=== PATIENT | male | born 1985 | race African-American/Black ===

== ENCOUNTER 2018-01-08 07:35 | Emergency (ER) | payer MEDICAID ==
[~2018-01-08] VITALS: Ht 190.5 cm; Wt 108.9 kg
[2018-01-08] MEDS ORDERED: SODIUM CHLORIDE 0.9% 1,000 ML IV ONE (08:09)
[2018-01-08] MEDS ORDERED: LEVETIRACETAM INJ 500 MG in D5W 5% 100 ML IV ONE (08:15)
[2018-01-08] MEDS ORDERED: HYDROcodone-ACET 5/325MG TAB PO ONE (08:30)
[2018-01-08 09:46] LABS: Basophils # (auto) 0 uL; Basophils % (auto) 0.1 % (0.0-2.0); Eosinophils # (auto) 0 uL; Eosinophils % (auto) 0.1 % (0.0-7.0); Hematocrit 46.5 % (41.0-53.0); Hemoglobin 15.7 g/dL (13.5-17.5); Lymphocytes # (auto) 1.1 uL; Lymphocytes % (auto) 8.5 % (10.0-50.0); Mean Corpuscular Hemoglobin 32.2 pg (28.0-32.0); Mean Corpuscular Hgb Conc. 33.7 g/dL (32.0-36.0); Mean Corpuscular Volume 95.6 fL (80.0-100.0); Monocytes % (auto) 7.8 % (0.0-12.0); Neutrophils % (auto) 83.5 % (37.0-80.0); Nucleated Red Blood Cells % 0.1 %; Platelet Count (auto) 252 10^3/uL (140-450); Red Blood Cells 4.86 10^6/uL (4.5-5.90); Red Cell Distribution Width 13.4 % (11.8-14.3); White Blood Cell 13.1 10^3/uL (4.4-10.8)
[2018-01-08 10:18] LABS: Alanine Aminotransferase 80 U/L (16-61); Albumin 4.4 g/dL (3.4-5.0); Anion Gap 8 (5-15); Aspartate Aminotransferase 33 U/L (15-37); BUN/Creatinine Ratio 10.6; Blood Urea Nitrogen 13 mg/dL (7-18); Calcium 8.3 mg/dL (8.5-10.1); Carbon Dioxide 22 mmol/L (21-32); Chloride 107 mmol/L (98-107); GFR African American 88 mL/min; GFR Non-African American 73 mL/min; Glucose 83 mg/dL (74-106); Potassium 4.1 mmol/L (3.5-5.1); Sodium 137 mmol/L (136-145)
[2018-01-08 10:21] LABS: Alkaline Phosphatase 77 U/L (45-117); Bilirubin, Total 0.4 mg/dL (0.2-1.0); Total Protein 9.2 g/dL (6.4-8.2)
[2018-01-08 11:01] VITALS: BP 143/92
== END 2018-01-08 11:09 | disposition home or self-care (01) ==
LOC: ER 07:35
DX: G40.909 Epilepsy, unspecified, not intractable, without status epilepticus (principal)
CPT/HCPCS: 36415; 71045; 80053; 84484; 85025; 96365; 96366; 99285; J1953; J7030; J7060

== ENCOUNTER 2019-02-06 11:14 | Emergency (ER) | payer MEDICAID ==
[~2019-02-06] VITALS: Ht 175.3 cm; Wt 104.3 kg
[2019-02-06] MEDS ORDERED: LORazepam 2MG/ML-1ML VIAL ONE (11:35)
[2019-02-06] MEDS ORDERED: LORazepam 2MG/ML-1ML VIAL IV ONE ×2 (11:45→12:15)
[2019-02-06] MEDS ORDERED: LEVETIRACETAM INJ 1,000 MG in D5W 5% 100 ML IV ONE (12:15)
[2019-02-06 12:39] LABS: Basophils # (auto) 0.1 uL; Eosinophils # (auto) 0.2 uL; Nucleated Red Blood Cells % 0.1 %; Red Cell Distribution Width 13.9 % (11.8-14.3)
[2019-02-06 12:39] LABS: Urine Bacteria NONE SEEN /hpf (None Seen); Urine Blood TRACE /uL (Negative); Urine Mucus FEW (None Seen); Urine Specific Gravity 1.024 (1.001-1.035); Urine WBC <1 /hpf (0 - 3)
[2019-02-06 12:40] LABS: Basophils % (auto) 0.5 % (0.0-2.0); Eosinophils % (auto) 0.9 % (0.0-7.0); Hematocrit 53.6 % (41.0-53.0); Hemoglobin 16.3 g/dL (13.5-17.5); Lymphocytes # (auto) 6.4 uL; Mean Corpuscular Hemoglobin 31.4 pg (28.0-32.0); Mean Corpuscular Hgb Conc. 30.4 g/dL (32.0-36.0); Mean Corpuscular Volume 103.2 fL (80.0-100.0); Monocytes # (auto) 1.3 uL; Monocytes % (auto) 7.1 % (0.0-12.0); Neutrophils # (auto) 10.9 uL; Neutrophils % (auto) 57.5 % (37.0-80.0); Platelet Count (auto) 349 10^3/uL (140-450); Red Blood Cells 5.19 10^6/uL (4.5-5.90); White Blood Cell 18.9 10^3/uL (4.4-10.8)
[2019-02-06] MEDS ORDERED: MIDAZOLAM DRIP 50 mg/50mL 50 ML IV ONE (12:51)
[2019-02-06 13:00] LABS: Albumin 5.3 g/dL (3.4-5.0); Anion Gap 27 (5-15); BUN/Creatinine Ratio 9.7; Blood Alcohol < 3.0 mg/dL (0-5); Blood Urea Nitrogen 16 mg/dL (7-18); Calcium 9.8 mg/dL (8.5-10.1); Chloride 106 mmol/L (98-107); GFR African American 62 mL/min; GFR Non-African American 52 mL/min; Glucose 201 mg/dL (74-106); Potassium 3.9 mmol/L (3.5-5.1); Sodium 139 mmol/L (136-145)
[2019-02-06 13:02] LABS: Alcohol, Urine < 3.0 mg/dL (0-5); Amphetamine Screen, Urine NEGATIVE (NEGATIVE); Barbiturate Scree,Urine NEGATIVE (NEGATIVE); Benzodiazephine Screen, Urine NEGATIVE (NEGATIVE); Cannabinoid Screen, Urine POSITIVE (NEGATIVE); Opiate Scree,Urine NEGATIVE (NEGATIVE); Phencyclidine Screen, Urine NEGATIVE (NEGATIVE)
[2019-02-06 13:11] LABS: Cocaine Screen, Urine NEGATIVE (NEGATIVE)
[2019-02-06 13:13] LABS: Alanine Aminotransferase 62 U/L (16-61); Alkaline Phosphatase 97 U/L (45-117); Aspartate Aminotransferase 27 U/L (15-37); Bilirubin, Total 0.4 mg/dL (0.2-1.0); Total Protein 10.6 g/dL (6.4-8.2)
[2019-02-06] MEDS ORDERED: SODIUM CHLORIDE 0.9% 1,000 ML IV ONE (13:15)
[2019-02-06] MEDS ORDERED: SODIUM BICARBONATE 8.4 % INJ 50ML VIAL IV ONE (13:15)
[2019-02-06 13:19] LABS: Carbon Dioxide 6 mmol/L (21-32)
[2019-02-06 16:00] VITALS: BP 142/97
== END 2019-02-06 16:27 | disposition home or self-care (01) ==
LOC: EDUNIT# 11:14 → EDBD 11:14 → ER 11:16
DX: G40.909 Epilepsy, unspecified, not intractable, without status epilepticus (principal); F19.10 Other psychoactive substance abuse, uncomplicated
CPT/HCPCS: 36415; 36600; 70450; 71045; 80053; 80307; 80320; 81001; 82805; 85025; 96365; 96375; 99284; J1953; J2060; J2250; J7060

== ENCOUNTER 2019-10-13 05:55 | Emergency (ER) | payer MEDICAID ==
[~2019-10-13] VITALS: Ht 175.3 cm; Wt 95.3 kg
[2019-10-13] MEDS ORDERED: SODIUM CHLORIDE 0.9% 1,000 ML IV ONE (06:41)
[2019-10-13] MEDS ORDERED: ACETAMINOPHEN 500 MG TAB PO ONE (06:45)
[2019-10-13] MEDS ORDERED: LORazepam 2MG/ML-1ML VIAL IV ONE (06:45)
[2019-10-13 07:54] LABS: Basophils # (auto) 0 10 ^3/uL (0-0.2); Basophils % (auto) 0.4 % (0.0-2.0); Eosinophils # (auto) 0 10 ^3/uL (0-0.8); Hematocrit 44.9 % (41.0-53.0); Hemoglobin 14.9 g/dL (13.5-17.5); Lymphocytes # (auto) 0.6 10 ^3/uL (0.4-5.4); Lymphocytes % (auto) 5.7 % (10.0-50.0); Mean Corpuscular Hemoglobin 32.4 pg (28.0-32.0); Mean Corpuscular Hgb Conc. 33.3 g/dL (32.0-36.0); Mean Corpuscular Volume 97.5 fL (80.0-100.0); Monocytes # (auto) 0.7 10 ^3/uL (0-1.3); Monocytes % (auto) 7.4 % (0.0-12.0); Neutrophils # (auto) 8.5 10 ^3/uL (1.6-8.6); Neutrophils % (auto) 86.5 % (37.0-80.0); Nucleated Red Blood Cells % 0.1 %; Platelet Count (auto) 246 10^3/uL (140-450); Red Cell Distribution Width 13.1 % (11.8-14.3); White Blood Cell 9.9 10^3/uL (4.4-10.8)
[2019-10-13 08:13] LABS: Albumin 4.2 g/dL (3.4-5.0); Calcium 9.3 mg/dL (8.5-10.1); Magnesium 3.1 mg/dL (1.6-2.6); Potassium 4.1 mmol/L (3.5-5.1)
[2019-10-13 08:17] LABS: Bilirubin, Total 0.4 mg/dL (0.2-1.0); Total Protein 8.9 g/dL (6.4-8.2)
[2019-10-13 09:25] LABS: Urine WBC None Seen /hpf (0 - 3)
[2019-10-13 09:40] LABS: Urine Bacteria NONE SEEN /hpf (None Seen); Urine Blood Negative /uL (Negative); Urine Specific Gravity 1.017 (1.001-1.035); Urine WBC Clumps PRESENT /hpf (None Seen)
[2019-10-13 09:54] LABS: Amphetamine Screen, Urine NEGATIVE (NEGATIVE); Barbiturate Scree,Urine NEGATIVE (NEGATIVE); Benzodiazephine Screen, Urine NEGATIVE (NEGATIVE); Cannabinoid Screen, Urine POSITIVE (NEGATIVE); Cocaine Screen, Urine NEGATIVE (NEGATIVE)
[2019-10-13 10:01] LABS: Opiate Scree,Urine NEGATIVE (NEGATIVE); Phencyclidine Screen, Urine NEGATIVE (NEGATIVE)
[2019-10-13 10:06] VITALS: BP 160/91
== END 2019-10-13 10:24 | disposition home or self-care (01) ==
LOC: EDBD 05:55 → ER 05:55
DX: G40.909 Epilepsy, unspecified, not intractable, without status epilepticus (principal); F12.10 Cannabis abuse, uncomplicated
CPT/HCPCS: 36415; 71045; 80053; 80307; 81001; 83735; 85025; 93005; 96374; 99285; J2060; J7030

== ENCOUNTER 2020-02-22 04:11 | Emergency (ER) | payer MEDICAID ==
[~2020-02-22] VITALS: Ht 177.8 cm; Wt 95.3 kg
[2020-02-22] MEDS ORDERED: SODIUM CHLORIDE 0.9% 1,000 ML IV ONE (04:30)
[2020-02-22 05:30] VITALS: BP 130/90
[2020-02-22] MEDS ORDERED: LORazepam 2MG/ML-1ML VIAL ONE (05:43)
[2020-02-22 06:55] LABS: Urine Bacteria FEW /hpf (None Seen); Urine Blood 2+ /uL (Negative); Urine Mucus FEW (None Seen); Urine Specific Gravity 1.014 (1.001-1.035); Urine WBC 3 /hpf (0 - 3)
[2020-02-22 06:56] LABS: Alcohol, Urine < 3.0 mg/dL (0-10); Amphetamine Screen, Urine NEGATIVE (NEGATIVE); Barbiturate Scree,Urine NEGATIVE (NEGATIVE); Benzodiazephine Screen, Urine NEGATIVE (NEGATIVE); Cannabinoid Screen, Urine POSITIVE (NEGATIVE); Cocaine Screen, Urine NEGATIVE (NEGATIVE); Opiate Scree,Urine NEGATIVE (NEGATIVE); Phencyclidine Screen, Urine NEGATIVE (NEGATIVE)
[2020-02-22] MEDS ORDERED: LORazepam 2MG/ML-1ML VIAL IV ONE (07:00)
[2020-02-22 07:10] LABS: Basophils # (auto) 0.1 10 ^3/uL (0-0.2); Basophils % (auto) 0.5 % (0.0-2.0); Eosinophils # (auto) 0.2 10 ^3/uL (0-0.8); Eosinophils % (auto) 1.1 % (0.0-7.0); Lymphocytes # (auto) 3.2 10 ^3/uL (0.4-5.4); Lymphocytes % (auto) 18.8 % (10.0-50.0); Mean Corpuscular Hemoglobin 31.7 pg (28.0-32.0); Mean Corpuscular Hgb Conc. 32.7 g/dL (32.0-36.0); Monocytes # (auto) 1.5 10 ^3/uL (0-1.3); Neutrophils # (auto) 12.1 10 ^3/uL (1.6-8.6); Neutrophils % (auto) 70.6 % (37.0-80.0); Nucleated Red Blood Cells % 0.1 %; Platelet Count (auto) 306 10^3/uL (140-450); Red Blood Cells 4.74 10^6/uL (4.5-5.90); White Blood Cell 17.2 10^3/uL (4.4-10.8)
[2020-02-22 07:22] LABS: Alanine Aminotransferase 56 U/L (16-61); Albumin 4.3 g/dL (3.4-5.0); Anion Gap 18 (5-15); Aspartate Aminotransferase 23 U/L (15-37); BUN/Creatinine Ratio 9.1; Blood Urea Nitrogen 12 mg/dL (7-18); Calcium 8.8 mg/dL (8.5-10.1); Carbon Dioxide 13 mmol/L (21-32); Chloride 106 mmol/L (98-107); GFR African American 80 mL/min; GFR Non-African American 66 mL/min; Glucose 156 mg/dL (74-106); Potassium 3.5 mmol/L (3.5-5.1); Sodium 137 mmol/L (136-145)
[2020-02-22 07:24] LABS: Alkaline Phosphatase 84 U/L (45-117); Bilirubin, Total 0.2 mg/dL (0.2-1.0); Total Protein 8.9 g/dL (6.4-8.2)
[2020-02-22 07:28] LABS: Blood Alcohol < 3.0 mg/dL (0-5)
== END 2020-02-22 08:32 | disposition still patient (30) ==
LOC: EDBD 04:11 → ER 04:11
DX: G40.89 Other seizures (principal)
CPT/HCPCS: 36415; 70450; 80053; 80307; 80320; 81001; 85025; 96361; 96374; 99284; J1953; J2060; J7030; J7060

== ENCOUNTER 2020-02-22 13:46 | Emergency (ER) | payer MEDICAID ==
[~2020-02-22] VITALS: Ht 177.8 cm; Wt 86.2 kg
[2020-02-22] MEDS ORDERED: LORazepam 2MG/ML-1ML VIAL IV ONE (14:00)
[2020-02-22 18:55] VITALS: BP 135/91
== END 2020-02-22 16:42 | disposition home or self-care (01) ==
LOC: ER 13:46 → EDBD 13:46 → ER 16:42
DX: G40.89 Other seizures (principal); F12.10 Cannabis abuse, uncomplicated
CPT/HCPCS: 96374; 99283; J2060

== ENCOUNTER 2023-11-13 19:02 | Inpatient (IN) | payer MEDICAID ==
[~2023-11-13] VITALS: Ht 175.3 cm; Wt 94.7 kg
[2023-11-13] MEDS: ONDANSETRON HCL 4 MG/2 ML VIAL IV ONE (20:22)
[2023-11-13] MEDS: MORPHINE SULFATE 4 MG/ML SYR/VIAL IV ONE (20:22)
[2023-11-13] MEDS ORDERED: levETIRAcetam 1000 mg/100ml 100 ML IV ONE (20:30)
[2023-11-13] MEDS: SODIUM CHLORIDE 0.9% 1,000 ML IV ONE (20:40)
[2023-11-13] MEDS: PHENYTOIN IV DILANTIN 1,000 MG in SODIUM CHL 0.9% 250 ML IV ONE (21:06)
[2023-11-13 21:46] LABS: Basophils # (auto) 0 10 ^3/uL (0-0.2); Basophils % (auto) 0.5 % (0.0-2.0); Eosinophils # (auto) 0 10 ^3/uL (0-0.8); Eosinophils % (auto) 0.4 % (0.0-7.0); Hematocrit 41.1 % (41.0-53.0); Hemoglobin 13.9 g/dL (13.5-17.5); Lymphocytes # (auto) 1.3 10 ^3/uL (0.4-5.4); Lymphocytes % (auto) 15.7 % (10.0-50.0); Mean Corpuscular Hemoglobin 32.9 pg (28.0-32.0); Mean Corpuscular Hgb Conc. 33.7 g/dL (32.0-36.0); Mean Corpuscular Volume 97.6 fL (80.0-100.0); Monocytes # (auto) 0.8 10 ^3/uL (0-1.3); Monocytes % (auto) 9.1 % (0.0-12.0); Neutrophils # (auto) 6.3 10 ^3/uL (1.6-8.6); Neutrophils % (auto) 74.3 % (37.0-80.0); Nucleated Red Blood Cells % 0.3 %; Platelet Count (auto) 215 10^3/uL (140-450); Red Blood Cells 4.22 10^6/uL (4.5-5.90); Red Cell Distribution Width 13.7 % (11.8-14.3); White Blood Cell 8.5 10^3/uL (4.4-10.8)
[2023-11-13 21:53] LABS: Alanine Aminotransferase 34 U/L (7-40); Albumin 4.7 g/dL (3.2-4.8); Alkaline Phosphatase 57 U/L (46-116); Anion Gap 5 (5-15); Aspartate Aminotransferase 17 U/L (13-40); BUN/Creatinine Ratio 12.7 (10.0-20.0); Bilirubin, Total 0.6 mg/dL (0.2-1.0); Blood Urea Nitrogen 13 mg/dL (9-23); Calcium 9.9 mg/dL (8.7-10.4); Carbon Dioxide 28 mmol/L (20-30); Chloride 104 mmol/L (98-107); Glucose 111 mg/dL (74-106); Potassium 4.8 mmol/L (3.5-5.1); Sodium 137 mmol/L (136-145); Total Protein 7.5 g/dL (5.7-8.2)
[2023-11-13 22:46] LABS: Urine Bacteria None Seen /hpf (None Seen)
[2023-11-13 23:01] LABS: Urine Blood Negative /uL (Negative); Urine Clarity Clear (Clear); Urine Color Colorless (Yellow); Urine Protein, UAD Negative (Negative); Urine Specific Gravity 1.004 (1.001-1.035); Urine Urobilinogen Normal (Negative); Urine WBC <1 /hpf (0 - 3)
[2023-11-13 23:33] VITALS: PULSE 82; RESP 10; O2SAT 96
[2023-11-14] VITALS (7 sets, daily range): BP systolic 133–144; BP diastolic 86–95; PULSE 68–86; RESP 16–18; TEMP 97.8–98.5; O2SAT 94–98
[2023-11-14] MEDS ORDERED: ONDANSETRON HCL 4 MG/2 ML VIAL IV PRN (01:30)
[2023-11-14] MEDS ORDERED: MORPHINE SULFATE INJ 2 MG/ml SYRG IV PRN (01:30)
[2023-11-14] MEDS ORDERED: LORazepam 2MG/ML-1ML VIAL IV PRN (01:30)
[2023-11-14] MEDS ORDERED: DOCUSATE SOD 100 MG CAP PO PRN (01:30)
[2023-11-14] MEDS ORDERED: NITROGLYCERIN 0.4 MG SL TAB SL PRN (01:30)
[2023-11-14] MEDS ORDERED: ACETAMINOPHEN 325 MG TAB PO PRN (01:30)
[2023-11-14] MEDS: SODIUM CHLORIDE 0.9% 1,000 ML IV SCH (01:35)
[2023-11-14 06:06] LABS: Basophils # (auto) 0.1 10 ^3/uL (0-0.2); Basophils % (auto) 0.6 % (0.0-2.0); Eosinophils # (auto) 0.1 10 ^3/uL (0-0.8); Eosinophils % (auto) 0.6 % (0.0-7.0); Hematocrit 40.2 % (41.0-53.0); Hemoglobin 13.6 g/dL (13.5-17.5); Lymphocytes # (auto) 2.2 10 ^3/uL (0.4-5.4); Lymphocytes % (auto) 25.5 % (10.0-50.0); Mean Corpuscular Hemoglobin 32.8 pg (28.0-32.0); Mean Corpuscular Hgb Conc. 33.8 g/dL (32.0-36.0); Mean Corpuscular Volume 97.2 fL (80.0-100.0); Monocytes # (auto) 0.8 10 ^3/uL (0-1.3); Neutrophils # (auto) 5.5 10 ^3/uL (1.6-8.6); Neutrophils % (auto) 64.3 % (37.0-80.0); Nucleated Red Blood Cells % 0.1 %; Platelet Count (auto) 206 10^3/uL (140-450); Red Blood Cells 4.14 10^6/uL (4.5-5.90); Red Cell Distribution Width 14.2 % (11.8-14.3); White Blood Cell 8.6 10^3/uL (4.4-10.8)
[2023-11-14 06:17] LABS: Alanine Aminotransferase 29 U/L (7-40); Albumin 4.5 g/dL (3.2-4.8); Alkaline Phosphatase 50 U/L (46-116); Anion Gap 4 (5-15); Aspartate Aminotransferase 13 U/L (13-40); BUN/Creatinine Ratio 5.7 (10.0-20.0); Blood Urea Nitrogen 6 mg/dL (9-23); Calcium 9.2 mg/dL (8.7-10.4); Carbon Dioxide 27 mmol/L (20-30); Chloride 107 mmol/L (98-107); Glucose 104 mg/dL (74-106); Potassium 3.9 mmol/L (3.5-5.1); Sodium 138 mmol/L (136-145)
[2023-11-14 06:18] LABS: Bilirubin, Total 0.6 mg/dL (0.2-1.0); Total Protein 7.4 g/dL (5.7-8.2)
[2023-11-14] MEDS: HYDROcodone-ACET 5/325MG TAB PO PRN (06:32)
[2023-11-14] MEDS ORDERED: LACO100T PO (07:21)
[2023-11-14] MEDS ORDERED: DIVA250T12 PO (07:22)
[2023-11-14] MEDS ORDERED: LORA-1123 PO (07:24)
[2023-11-14] MEDS: PHENYTOIN SODIUM 50 MG/ML 2ML VIAL IV SCH (10:08)
[2023-11-14] MEDS: LACOSAMIDE 50 MG TAB PO SCH (12:17)
[2023-11-14] MEDS ORDERED: LACOSAMIDE 50 MG TAB PO SCH (14:00)
[2023-11-14] MEDS: LORazepam 0.5 MG TAB PO ONE (16:03)
[2023-11-14] MEDS: LORazepam 0.5 MG TAB PO SCH (21:47)
[2023-11-15 05:00] VITALS: BP 131/90; PULSE 80; RESP 18; TEMP 98.1; O2SAT 98
[2023-11-15 07:36] LABS: Basophils # (auto) 0 10 ^3/uL (0-0.2); Basophils % (auto) 0.5 % (0.0-2.0); Eosinophils # (auto) 0.1 10 ^3/uL (0-0.8); Eosinophils % (auto) 1.5 % (0.0-7.0); Hematocrit 43.7 % (41.0-53.0); Hemoglobin 14.8 g/dL (13.5-17.5); Lymphocytes # (auto) 1.7 10 ^3/uL (0.4-5.4); Lymphocytes % (auto) 26.3 % (10.0-50.0); Mean Corpuscular Hemoglobin 33.2 pg (28.0-32.0); Mean Corpuscular Hgb Conc. 33.8 g/dL (32.0-36.0); Mean Corpuscular Volume 98.1 fL (80.0-100.0); Monocytes # (auto) 0.8 10 ^3/uL (0-1.3); Monocytes % (auto) 11.6 % (0.0-12.0); Neutrophils # (auto) 3.9 10 ^3/uL (1.6-8.6); Neutrophils % (auto) 60.1 % (37.0-80.0); Platelet Count (auto) 207 10^3/uL (140-450); Red Blood Cells 4.46 10^6/uL (4.5-5.90); White Blood Cell 6.5 10^3/uL (4.4-10.8)
[2023-11-15 08:00] VITALS: BP 137/103; PULSE 68; PULSE 94; RESP 16; RESP 18; TEMP 97.8; O2SAT 100; O2SAT 99
[2023-11-15 08:06] LABS: Alanine Aminotransferase 23 U/L (7-40); Albumin 4.6 g/dL (3.2-4.8); Alkaline Phosphatase 55 U/L (46-116); Anion Gap 2 (5-15); Aspartate Aminotransferase 19 U/L (13-40); Bilirubin, Total 0.5 mg/dL (0.2-1.0); Blood Urea Nitrogen 7 mg/dL (9-23); Calcium 9.9 mg/dL (8.7-10.4); Carbon Dioxide 31 mmol/L (20-30); Chloride 104 mmol/L (98-107); Glucose 95 mg/dL (74-106); Potassium 4.1 mmol/L (3.5-5.1); Sodium 137 mmol/L (136-145); Total Protein 7.8 g/dL (5.7-8.2)
[2023-11-15] MEDS ORDERED: DIVA-139 PO (10:39)
[2023-11-15 11:33] VITALS: BP 119/59; PULSE 94; RESP 18; TEMP 36.6; O2SAT 100
[2023-11-15 12:00] VITALS: BP 127/94; PULSE 67; RESP 18; TEMP 98.4; O2SAT 100
== END 2023-11-15 13:50 | disposition home or self-care (01) | DRG 53 ==
LOC: ER 19:02 → TELE 11-14 01:29 → TELE-EAST 11-14 06:06
PROVIDERS: ADMIT Nurse Practitioner Family; ATTEND Family Medicine
DX: G40.409 Other generalized epilepsy and epileptic syndromes, not intractable, without status epilepticus (principal); E11.9 Type 2 diabetes mellitus without complications; F41.9 Anxiety disorder, unspecified; R41.3 Other amnesia; G40.209 Localization-related (focal) (partial) symptomatic epilepsy and epileptic syndromes with complex partial seizures, not intractable, without status epilepticus; I10 Essential (primary) hypertension; Z82.49 Family history of ischemic heart disease and other diseases of the circulatory system; Z83.3 Family history of diabetes mellitus; Z91.148 Patient's other noncompliance with medication regimen for other reason
CPT/HCPCS: 36415; 70450; 80053; 80164; 81001; 84484; 85025; G0378; J2405

== ENCOUNTER 2025-01-22 02:06 | Inpatient (IN) | payer MEDICAID ==
[~2025-01-22] VITALS: Ht 175.3 cm; Wt 96.0 kg
[~2025-01-22 02:06] MED LIST: DIVA-139 PO; DIVA250T12 PO; LACO100T PO; LORA-1123 PO
[2025-01-22] MEDS: ACETAMINOPHEN 500 MG TAB or CAP PO ONE (03:12)
[2025-01-22] MEDS: LORazepam 2MG/ML-1ML VIAL IV ONE (03:12)
[2025-01-22] MEDS: SODIUM CHLORIDE 0.9% 1,000 ML IV ONE (03:12)
--- NOTE | 2025-01-22 03:12 | ED.PDOC ---
HPI (NEURO) HPI Comments 31-year-old male who came to ER via EMS for seizures. Patient has a history of seizures, takes Depakote and Vimpat as medications. These last seizure episode was 3 weeks ago. Had another seizure episode at home, witnessed by family members. Patient currently complaining of weakness, headaches and body pains REVIEW OF SYSTEMS: General: No fever, no chills, or fatigue HEENT: No sore throat, no earache, no congestion, no neck pain. Cardiac: No chest pain. No palpitations. Lungs: No shortness of breath, no cough. GI: No nausea, no vomiting, no diarrhea, no constipation, no abdominal pain : No dysuria, frequency, or urgency. No hematuria. Musculoskeletal: No joint pain , no joint swelling, no extremity edema. Skin: No rash, no itching. Neuro: (+) headache, no dizziness, (+) weakness, (+) seizures PHYSICAL EXAM: General: Awake, alert and oriented. No acute distress. Skin: Skin in warm, dry and intact without rashes or lesions. HEENT: The head is normocephalic and atraumatic. Conjunctivae are clear without exudates or hemorrhage. Sclera is non-icteric. Neck: Normal range of motion. No JVD. Cardiac: Regular rate Respiratory: No signs of respiratory distress. No Stridor. Extremities: Upper and lower extremities are atraumatic in appearance without deformity. Neurological: The patient is awake, alert and oriented to person, place, and time with normal speech. Speech is clear. There is no facial asymmetry. No gross neuro deficit Psychiatric: Appropriate mood and affect. Good judgement and insight. Chief Complaint: Seizure Time Seen by MD: 03:12 Primary Care Provider: BROOKE Reviewed Notes: Health Care Analyst Notes Information Source: Patient Mode of Arrival: EMS Past Medical History PAST MEDICAL HISTORY: Seizures Surgical History: Denies all surgeries Family History Family History: Reviewed,noncontributory to illness Social History Smoker: Non-Smoker Alcohol: Occasionally Drugs: Marijuana Lives In: Home Was a procedure done? Was a procedure done?: No Differential Diagnosis (SZ) Seizure: Psychogenic Seizure, Hypoxemia, Idiopathic, Encephalopathy, Epilepsy- Break Through, Epilepsy-Status, Other X-Ray, Labs, Meds, VS Vital Signs Date Time Temp Pulse Resp B/P (MAP) Pulse Ox O2 Delivery O2 Flow Rate FiO2 10/25/25 02:36 Room Air* 0 21 01/22/25 02:36 97.9 96 12 124/90 (101) 97 97.9 01/22/25 02:13 98.8 97 18 163/99 99 98.8 Lab Test 01/22/25 03:10 Range/Units White Blood Count 6.9 4.4-10.8 10^3/uL Red Blood Count 4.63 4.5-5.90 10^6/uL Hemoglobin 14.6 13.5-17.5 g/dL Hematocrit 43.5 41.0-53.0 % Mean Corpuscular Volume 94.0 80.0-100.0 fL Mean Corpuscular Hemoglobin 31.6 28.0-32.0 pg Mean Corpuscular Hemoglobin Concent 33.6 32.0-36.0 g/dL Red Cell Distribution Width 14.6 H 11.8-14.3 % Platelet Count 239 140-450 10^3/uL Mean Platelet Volume 8.5 6.9-10.8 fL Neutrophils (%) (Auto) 67.7 37.0-80.0 % Lymphocytes (%) (Auto) 18.1 10.0-50.0 % Monocytes (%) (Auto) 11.5 0.0-12.0 % Eosinophils (%) (Auto) 2.2 0.0-7.0 % Basophils (%) (Auto) 0.5 0.0-2.0 % Neutrophils # (Auto) 4.7 1.6-8.6 10 ^3/uL Lymphocytes # (Auto) 1.3 0.4-5.4 10 ^3/uL Monocytes # (Auto) 0.8 0-1.3 10 ^3/uL Eosinophils # (Auto) 0.2 0-0.8 10 ^3/uL Basophils # (Auto) 0 0-0.2 10 ^3/uL Nucleated Red Blood Cells 0.2 % Sodium Level 140 136-145 mmol/L Potassium Level 4.2 3.5-5.1 mmol/L Chloride Level 102 98-107 mmol/L Carbon Dioxide Level 28 20-31 mmol/L Anion Gap 10 5-15 Blood Urea Nitrogen 6 L 9-23 mg/dL Creatinine 1.05 0.700-1.30 mg/dL Glomerular Filtration Rate Calc 93 >90 mL/min BUN/Creatinine Ratio 5.7 L 10.0-20.0 Serum Glucose 94 74-106 mg/dL Calcium Level 10.1 8.7-10.4 mg/dL Total Bilirubin 0.4 0.2-1.0 mg/dL Aspartate Amino Transferase (AST) 23 13-40 U/L Alanine Aminotransferase (ALT) 54 H 7-40 U/L Alkaline Phosphatase 72 46-116 U/L Total Protein 8.5 H 5.7-8.2 g/dL Albumin 4.9 H 3.2-4.8 g/dL Current Medications Medications (Trade) Dose Ordered Sig/Korey Route Start Time Stop Time Status Last Admin Sodium Chloride 1,000 ml @ 1,000 mls/hr Q1H ONCE IV 01/22/25 03:15 01/22/25 04:14 01/22/25 03:12 Lorazepam (Ativan Inj) 1 mg ONCE ONCE IV 01/22/25 03:15 01/22/25 03:16 DC 01/22/25 03:12 Acetaminophen (Tylenol Tablet Or Capsule) 1,000 mg ONCE ONCE PO 01/22/25 03:15 01/22/25 03:16 DC 01/22/25 03:12 Time of 1ST Reevaluation: 03:09 Reevaluation 1ST: Unchanged Patient Education/Counseling: Need For Follow Up Family Education/Counseling: No Family Present Departure 1 Departure Time of Disposition: 03:51 Impression: Primary Impression: Uncontrolled seizures Disposition: ADMITTED INPATIENT Condition: Stable Comments MDM: 39-year-old male with uncontrolled seizure disorder. No seizure observed during the ED observation. Patient admitted to hospitalist service for further treatment, neurology consultation, and monitoring. Extensive evaluation was performed in attempt to identify or rule out: (See differential diagnosis section) The following tests were ordered, and results were reviewed by me and discussed with patient: (See diagnostic results section) Addressed an acute or chronic illness that poses a threat to life or bodily function: Uncontrolled seizures Decision regarding hospitalization or escalation of hospital level of care: Risk and benefits of admission for further treatment of patient's condition was considered. Due to patient's current clinical condition, high risk of decline a nd poor outcome if discharged and need for further inpatient management and monitoring, patient will be admitted to the hospital. Parenteral controlled substances: IV lorazepam Critical Care Note Critical Care Time?: No Stability Stability form required: No I personally scribed for MEL HOLT MD ([email or web address]) on 01/22/25 at 03:12. Electronically submitted by Grover Lamb ([email or web address]). MEL HOLT MD Jan 22, 2025 03:12
[2025-01-22] MEDS ORDERED: levETIRAcetam 1000 mg/100ml 100 ML IV ONE (03:15)
[2025-01-22] MEDS: KETOROLAC TROMETH 30 MG/ML 1ML VIAL IV ONE (03:30)
[2025-01-22 03:44] LABS: Alkaline Phosphatase 72 U/L (46-116); Anion Gap 10 (5-15); BUN/Creatinine Ratio 5.7 (10.0-20.0); Calcium 10.1 mg/dL (8.7-10.4); Carbon Dioxide 28 mmol/L (20-31); Chloride 102 mmol/L (98-107); Glucose 94 mg/dL (74-106); Potassium 4.2 mmol/L (3.5-5.1); Sodium 140 mmol/L (136-145)
[2025-01-22 03:45] LABS: Alanine Aminotransferase 54 U/L (7-40); Albumin 4.9 g/dL (3.2-4.8); Bilirubin, Total 0.4 mg/dL (0.2-1.0); Blood Urea Nitrogen 6 mg/dL (9-23); Total Protein 8.5 g/dL (5.7-8.2)
[2025-01-22] MEDS ORDERED: ACETAMINOPHEN 325 MG TAB PO PRN (05:00)
[2025-01-22] MEDS ORDERED: ONDANSETRON HCL 4 MG/2 ML VIAL IV PRN (05:00)
[2025-01-22] MEDS ORDERED: NITROGLYCERIN 0.4 MG SL TAB SL PRN (05:00)
[2025-01-22] MEDS ORDERED: MORPHINE SULFATE INJ 2 MG/ml SYRG IV PRN (05:00)
[2025-01-22] MEDS ORDERED: DOCUSATE SOD 100 MG CAP PO PRN (05:00)
--- NOTE | 2025-01-22 05:02 | DVHHP2 ---
History of Present Illness Reason for Visit: Seizure History of Present Illness The patient is a 31-year-old male with past medical history of seizures who presented to [facility] ED for evaluation of seizures activity. As reported by , patient had a witnessed seizures, associated with generalized weakness, headache, and body pains. Patient's last seizure episode was 3 weeks ago. Patient was seen and evaluated in the ED, laboratory data shows WBC 6.9, platelets 239, sodium 140, potassium 4.2, BUN 6, creatinine 1.05, glucose 94, calcium 10.1, protein 8.5, albumin 4.9, AST 23, ALT 54, blood pressure 131/93, heart rate 96, temperature 97.9 F, O2 saturation 97% on room air. Patient was started on Depakote and Vimpat, please see medication orders section in the computer. On my assessment, at bedside, patient denied chest pain, no dizziness, headache, shortness of breaths, diaphoresis, no abdominal pain, diarrhea, nausea, vomiting, fever, no chills. Patient was admitted for further evaluation and medical management. Past Medical History Seizures Past Surgical History Denies all surgeries Family History Reviewed, noncontributory to the management of this case. Past Social History The patient lives at home, denies smoking, drinks alcohol occasionally, uses marijuana. Review of Systems Constitutional: Yes: Weakness; No: Fever, Chills, Sweats, Malaise, Other Eyes: No: Pain, Vision change, Conjunctivae inflammation, Eyelid inflammation, Other, Redness ENT: No: Ear pain, Ear discharge, Nose pain, Nose discharge, Nose congestion, Mouth pain, Mouth swelling, Throat pain, Throat swelling, Other Respiratory: No: Cough, Dry, Shortness of breath, SOB with excertion, Wheezing, Hemoptysis, Pleuritic Pain, Sputum, Wheezing, Other Cardiovascular: No: Chest Pain, Palpitations, Orthopnea, Paroxysmal Noc. Dyspnea, Edema, Lt Headedness, Other Gastrointestinal: No: Nausea, Vomiting, Abdominal Pain, Diarrhea, Constipation, Melena, Hematochezia, Other Genitourinary: No Dysuria, No Frequency, No Incontinence, No Hematuria, No Retention, No Other Musculoskeletal: No: other, neck pain, shoulder pain, arm pain, back pain, hand pain, leg pain, foot pain Skin: No: Rash, Lesions, Jaundice, Bruising, Other Neurological: Seizures; No: Weakness, Numbness, Incoordination, Change in speech, Confusion, Other Allergies: Coded Allergies: Levetiracetam (Verified Allergy, Unknown, 11/13/23) SENSITIVITY REACTION Penicillins (Verified Allergy, Unknown, 10/13/19) Exam Vital Signs Vital Signs Date Time Temp Pulse Resp B/P (MAP) Pulse Ox O2 Delivery O2 Flow Rate FiO2 01/22/25 04:00 100 16 131/93 (106) 95 01/22/25 02:36 Room Air* 0 21 01/22/25 02:36 97.9 97.9 General Appearance: Alert, Oriented X3, Cooperative, No acute distress HEENT: Atraumatic, PERRLA, EOMI, Mucous membr. moist/pink Respiratory: Normal air movement Cardiovascular: Regular rate, Normal S1, Normal S2, No murmurs Abdominal: Normal bowel sounds, Soft, No tenderness, No hepatospenomegaly, No masses Extremities: No clubbing, No cyanosis, No edema, Normal pulses, No tenderness/swelling Skin: No rashes, No significant lesion Neuro: Normal speech, Normal tone, Sensation intact, Cranial nerves 3-12 NL, Reflexes 2+, Other (Generalized weakness) Psych/Mental Status: Mental status NL, Mood NL Labs/Xrays Labs Test 01/22/25 03:10 Range/Units White Blood Count 6.9 4.4-10.8 10^3/uL Red Blood Count 4.63 4.5-5.90 10^6/uL Hemoglobin 14.6 13.5-17.5 g/dL Hematocrit 43.5 41.0-53.0 % Mean Corpuscular Volume 94.0 80.0-100.0 fL Mean Corpuscular Hemoglobin 31.6 28.0-32.0 pg Mean Corpuscular Hemoglobin Concent 33.6 32.0-36.0 g/dL Red Cell Distribution Width 14.6 H 11.8-14.3 % Platelet Count 239 140-450 10^3/uL Mean Platelet Volume 8.5 6.9-10.8 fL Neutrophils (%) (Auto) 67.7 37.0-80.0 % Lymphocytes (%) (Auto) 18.1 10.0-50.0 % Monocytes (%) (Auto) 11.5 0.0-12.0 % Eosinophils (%) (Auto) 2.2 0.0-7.0 % Basophils (%) (Auto) 0.5 0.0-2.0 % Neutrophils # (Auto) 4.7 1.6-8.6 10 ^3/uL Lymphocytes # (Auto) 1.3 0.4-5.4 10 ^3/uL Monocytes # (Auto) 0.8 0-1.3 10 ^3/uL Eosinophils # (Auto) 0.2 0-0.8 10 ^3/uL Basophils # (Auto) 0 0-0.2 10 ^3/uL Nucleated Red Blood Cells 0.2 % Sodium Level 140 136-145 mmol/L Potassium Level 4.2 3.5-5.1 mmol/L Chloride Level 102 98-107 mmol/L Carbon Dioxide Level 28 20-31 mmol/L Anion Gap 10 5-15 Blood Urea Nitrogen 6 L 9-23 mg/dL Creatinine 1.05 0.700-1.30 mg/dL Glomerular Filtration Rate Calc 93 >90 mL/min BUN/Creatinine Ratio 5.7 L 10.0-20.0 Serum Glucose 94 74-106 mg/dL Calcium Level 10.1 8.7-10.4 mg/dL Total Bilirubin 0.4 0.2-1.0 mg/dL Aspartate Amino Transferase (AST) 23 13-40 U/L Alanine Aminotransferase (ALT) 54 H 7-40 U/L Alkaline Phosphatase 72 46-116 U/L Total Protein 8.5 H 5.7-8.2 g/dL Albumin 4.9 H 3.2-4.8 g/dL SEPSIS Sepsis Screen Date sepsis recognized/suspect: Jan 22, 2025 Time Sepsis recognized/suspect: 235 Recent Procedure: No On Antibiotic Therapy: No Respiratory Rate >20: No Heart Rate >90: No Temp<36 C (96.8 F) or >38.3 C: No SBP <90 or MAP <65 mmHG: No New Acute Mental Status Change: No Is the patient on CPAP, BIPAP,: No Physician Orders Drug Screen (01/22/25 03:01) Urinalysis (01/22/25 03:01) Seizure Precautions (01/22/25 ) Titrate Oxygen (01/22/25 03:01) Oxygen (01/22/25 ) Continous Pulse Oximetry (01/22/25 03:01) Saline Lock (01/22/25 03:01) Manager Of Health (01/22/25 ) * Neurology Consult (01/22/25 04:53) Divalproex Dr Tablet (Depakote "Dr" Tabl (01/22/25 06:00) (Nf) Lacosamide (01/22/25 10:00) Lorazepam 2mg/Ml Inj (Ativan Inj) (01/22/25 05:00) Valproic Acid (Depakene) (01/22/25 04:53) Complete Blood Count (01/22/25 04:53) Comprehensive Metabolic Panel (01/22/25 04:53) Head Without Contrast (01/22/25 04:53) Admit (01/22/25 04:53) Allergies (01/22/25 04:53) Code Status (01/22/25 04:53) Sodium Chloride Lock (Saline Lock Ns) (01/22/25 06:00) Oxygen Per Hour (01/22/25 04:53) Hydrocodone-Acet 5/325mg Tab ([place] 5/32 (01/22/25 05:00) Ondansetron Hcl (Zofran) (01/22/25 05:00) Docusate Sodium Capsule (Colace Capsule) (01/22/25 05:00) Fall Risk Precautions In Place QSHIFT (01/22/25 04:53) Complete Blood Count (01/23/25 04:00) Comprehensive Metabolic Panel (01/23/25 04:00) Cardiac Diet-2gna,Lofat,Lochol (01/22/25 Breakfast) Condition: Serious (01/22/25 04:53) Acetaminophen Tablet (Tylenol Tablet) (01/22/25 05:00) Maintain Bed Rest (01/22/25 04:53) Sequential Compression Device (01/22/25 ) Nitroglycerin Sublingual (Ntrostat Subli (01/22/25 05:00) Morphine Sulfate Injection (01/22/25 05:00) Stat Ekg For Chest Pain (01/22/25 04:53) Notify Md Of Changes From Base (01/22/25 04:53) Credit Charge Authorizer For 24 Hours (01/22/25 04:53) Emergency Dysrhythmia Protocol (01/22/25 04:53) Rhythm Strips Once Every Shift (01/22/25 04:53) Oxygen By Nasal Cannula (01/22/25 04:53) Vital Signs Date Time Temp Pulse Resp B/P (MAP) Pulse Ox O2 Delivery O2 Flow Rate FiO2 01/22/25 04:00 100 16 131/93 (106) 95 01/22/25 02:36 Room Air* 0 21 01/22/25 02:36 97.9 96 12 124/90 (101) 97 97.9 01/22/25 02:13 98.8 97 18 163/99 99 98.8 Laboratory Tests Test 01/22/25 03:10 White Blood Count 6.9 10^3/uL (4.4-10.8) Medications Medications Dose Ordered Sig/Korey Route Start Time Stop Time Status Last Admin Dose Admin Acetaminophen 1,000 mg ONCE ONCE PO 01/22/25 03:15 01/22/25 03:16 DC 01/22/25 03:12 1,000 MG Lorazepam 1 mg ONCE ONCE IV 01/22/25 03:15 01/22/25 03:16 DC 01/22/25 03:12 1 MG Sodium Chloride 1,000 ml @ 1,000 mls/hr Q1H ONCE IV 01/22/25 03:15 01/22/25 04:14 DC 01/22/25 03:12 1,000 MLS/HR Assessment/Plan Assessment/Plan Seizure disorder Generalized weakness Plan 1. Admit to telemetry unit 2. Breathing treatment 3. Pain control management 4. Management of fluids and electrolytes 5. Consultation for Neurology 6. Diagnostic tests head CT 7. DVT prophylaxis on SCDs 8. Repeat labs CBC, CMP in a.m. 9. Continue with current medical management 10. Treatment plan discussed with patient/ and RN. Patient/ verbalized understanding. Plan discussed with: Patient ( at bedside), Other (RN) My Orders Orders - LUAN BOWSER DNP Procedure Category Date Status Time * Neurology Consult CONS 01/22/25 Verified 04:[address] Tablet PHA 01/22/25 Verified (Depakote "Dr" Tabl 06:00 (Nf) Lacosamide PHA 01/22/25 Verified 10:00 Lorazepam 2mg/Ml Inj PHA 01/22/25 Verified (Ativan Inj) 05:00 Valproic Acid LAB 01/22/25 Verified (Depakene) 04:53 Complete Blood Count LAB 01/22/25 Verified 04:53 Comprehensive LAB 01/22/25 Verified Metabolic Panel 04:[address] 01/22/25 Verified 04:53 Admit ADMIT 01/22/25 Verified 04:53 Allergies PERRI 01/22/25 Verified 04:53 Code Status CODE 01/22/25 Verified 04:53 Sodium Chloride Lock PHA 01/22/25 Verified (Saline Lock Ns) 06:00 Oxygen Per Hour RT 01/22/25 Verified 04:53 Hydrocodone-Acet PHA 01/22/25 Verified 5/325mg Tab ([place] 05:00 Ondansetron Hcl PHA 01/22/25 Verified (Zofran) 05:00 Docusate Sodium PHA 01/22/25 Verified Capsule (Colace 05:00 Fall Risk Precautions PERRI 01/22/[address] 04:53 Complete Blood Count LAB 01/23/25 Verified 04:00 Comprehensive LAB 01/23/25 Verified Metabolic Panel 04:00 Cardiac DIET 01/22/25 Verified Diet-2gna,Lofat,Lochol Breakfast Condition: Serious PERRI 01/22/25 Verified 04:53 Acetaminophen Tablet PHA 01/22/25 Verified (Tylenol Tablet) 05:00 Maintain Bed Rest PERRI 01/22/25 Verified 04:53 Sequential [facility] 01/22/25 Verified Compression Device Nitroglycerin [facility] 01/22/25 Verified Sublingual (Ntrostat 05:00 Morphine Sulfate PHA 01/22/25 Verified Injection 05:00 Stat Ekg For Chest [facility] 01/22/25 Verified Pain 04:53 Notify Md Of Changes [facility] 01/22/25 Verified From Base 04:53 Credit Charge Authorizer For [facility] 01/22/25 Verified 24 Hours 04:53 Emergency Dysrhythmia [facility] 01/22/25 Verified Protocol 04:53 Rhythm Strips Once [facility] 01/22/25 Verified Every Shift 04:53 Oxygen By Nasal RT 01/22/25 Verified Cannula 04:53 Problem List: (1) Seizure disorder (2) Generalized weakness Date of Service: Jan 22, 2025 Billing Provider: LUAN BOWSER DNP Common Visit Codes: [id number] INP/OBS CARE (HIGH) LUAN BOWSER DNP Jan 22, 2025 05:02
[2025-01-22 05:57] LABS: Urine Protein, UAD Negative (Negative)
[2025-01-22] MEDS: SODIUM CHLOR 0.9% PF (SALINE LOCK) 10ML VIAL/SYR IV SCH (06:05)
[2025-01-22 06:11] LABS: Amphetamine Screen, Urine Neg (NEGATIVE); Barbiturate Scree,Urine Neg (NEGATIVE); Benzodiazephine Screen, Urine Neg (NEGATIVE); Cannabinoid Screen, Urine Pos (NEGATIVE); Cocaine Screen, Urine Neg (NEGATIVE); Opiate Scree,Urine Neg (NEGATIVE); Phencyclidine Screen, Urine Neg (NEGATIVE)
--- NOTE | 2025-01-22 06:32 | DVH ---
EXAM: CT HEAD WITHOUT CONTRAST INDICATION: Seizures TECHNIQUE: CT of the head without intravenous contrast. Radiation Dose : 1. Head: CT Dose: CTDI volume is 69.45 mGy. Dose-length product is 1368.3 mGy*cm The dose indicators for CT are the volume Computed Tomography (CT) Dose Index (CTDIvol) and the Dose Length Product (DLP), and are measured in units of mGy and mGy-cm, respectively. These indicators are not patient dose, but values generated from the CT scanner acquisition factors. The report includes radiation exposure data for exposures received during this examination. COMPARISON: CT HEAD WITHOUT CONTRAST on DOS: 11/13/23, HEAD WITHOUT CONTRAST on DOS: 02/22/20, HEAD WI THOUT CONTRAST on DOS: 02/06/19 FINDINGS: There is no evidence of acute intracranial hemorrhage, extra-axial collection, mass effect, midline s hift, herniation or hydrocephalus. The ventricles, sulci and cisterns are age appropriate. The gregorio-white differentiation is intact. The visualized paranasal sinuses and mastoid air cells are clear. The surrounding soft tissues and osseous structures are unremarkable. IMPRESSION: 1. No evidence of acute intracranial abnormality. Radiation optimization: All CT scans at this facility use at least one of these dose optimization pete hniques: automated exposure control mA and/or kV adjustment per patient size (includes targeted exam s where dose is matched to clinical indication) or iterative reconstruction.
[2025-01-22 07:20] VITALS: PULSE 95; RESP 13; O2SAT 97
[2025-01-22 08:22] LABS: Albumin 4.8 g/dL (3.2-4.8); Alkaline Phosphatase 70 U/L (46-116); Anion Gap 10 (5-15); BUN/Creatinine Ratio 6.5 (10.0-20.0); Bilirubin, Total 0.4 mg/dL (0.2-1.0); Calcium 9.2 mg/dL (8.7-10.4); Carbon Dioxide 26 mmol/L (20-31); Chloride 103 mmol/L (98-107); Glucose 86 mg/dL (74-106); Potassium 3.9 mmol/L (3.5-5.1); Sodium 139 mmol/L (136-145); Total Protein 8.1 g/dL (5.7-8.2)
[2025-01-22 08:29] LABS: Alanine Aminotransferase 54 U/L (7-40); Blood Urea Nitrogen 6 mg/dL (9-23)
[2025-01-22] MEDS: HYDROcodone-ACET 5/325MG TAB PO PRN (08:29)
[2025-01-22 08:44] LABS: Hematocrit 42.2 % (41.0-53.0); Hemoglobin 14.2 g/dL (13.5-17.5); Mean Corpuscular Hemoglobin 31.3 pg (28.0-32.0); Mean Corpuscular Volume 93.3 fL (80.0-100.0); Nucleated Red Blood Cells % 0.1 %
--- NOTE | 2025-01-22 10:14 | DVHPN2 ---
Subjective Patient denies any symptoms Reviewed: Care Plan, H&P, Labs, Medications Changes from previous H/P or p: No Changes General: Per HPI Eyes: No Pain, No Vision change, No Conjunctivae inflammation, No Eyelid inflammation, No Other, No Redness ENT: No Ear pain, No Ear discharge, No Nose pain, No Nose discharge, No Nose congestion, No Mouth pain, No Mouth swelling, No Throat pain, No Throat swelling, No Other Cardiovascular: No Chest Pain, No Palpitations, No Orthopnea, No Paroxysmal Noc. Dyspnea, No Edema, No Lt Headedness, No Other Respiratory: No Cough, No Dry, No Shortness of breath, No SOB with excertion, No Wheezing, No Hemoptysis, No Pleuritic Pain, No Sputum, No Other Gastrointestinal: No Nausea, No Vomiting, No Abdominal Pain, No Diarrhea, No Constipation, No Melena, No Hematochezia, No Other Genitourinary: No Dysuria, No Frequency, No Incontinence, No Hematuria, No Retention, No Other Musculoskeletal: No other, No neck pain, No shoulder pain, No arm pain, No back pain, No hand pain, No leg pain, No foot pain Skin: No Rash, No Lesions, No Jaundice, No Bruising, No Other Objective Vitals Vital Signs Date Time Temp Pulse Resp B/P (MAP) Pulse Ox O2 Delivery O2 Flow Rate FiO2 01/22/25 10:00 98.8 97 14 119/83 (95) 97 98.8 01/22/25 07:20 Nasal Cannula* 2 28 Intake/Output Intake and Output 01/22/25 07:00 Intake Total 1000 ml Balance 1000 ml Intake IV Total 1000 ml General Appearance: Alert, Oriented X3, Cooperative, No acute distress HEENT: Atraumatic, PERRLA Lungs: Clear to auscultation, Normal air movement Cardiovascular: Normal S1, Normal S2 Abdomen: Normal bowel sounds, Soft, No hepatospenomegaly, No masses Back: Flank Tenderness, Midline Tenderness Musculoskeletal: Normal sensory function, Normal motor function Neuro: Normal gait, Normal speech Skin: Dry, Intact Psych/Mental Status: Mental status NL, Mood NL Medications Current Medications Medications Dose Ordered Sig/Korey Route Start Time Stop Time Status Last Admin Dose Admin Divalproex Sodium 250 mg TID PO 01/22/25 06:00 01/22/25 06:07 250 MG Lacosamide 300 mg BID PO 01/22/25 10:00 Lorazepam 1 mg Q2HP PRN IV 01/22/25 05:00 Sodium Chloride 10 ml Q8HR IV 01/22/25 06:00 01/22/25 06:05 10 ML Acetaminophen/ Hydrocodone Bitart 1 tab Q4HP PRN PO 01/22/25 05:00 01/22/25 08:29 1 TAB Ondansetron HCl 4 mg Q4HP PRN IV 01/22/25 05:00 Docusate Sodium 100 mg BIDPRN PRN PO 01/22/25 05:00 Acetaminophen 650 mg Q6HP PRN PO 01/22/25 05:00 Nitroglycerin 0.4 mg Q5MINP PRN SL 01/22/25 05:00 Morphine Sulfate 2 mg Q30M PRN IV 01/22/25 05:00 Laboratory Results Laboratory Tests 01/22/25 07:34 01/22/25 07:39 Chemistry Test 01/22/25 03:10 01/22/25 07:39 Albumin 4.9 g/dL (3.2-4.8) H 4.8 g/dL (3.2-4.8) Calcium Level 10.1 mg/dL (8.7-10.4) 9.2 mg/dL (8.7-10.4) Total Protein 8.5 g/dL (5.7-8.2) H 8.1 g/dL (5.7-8.2) LFT Test 01/22/25 03:10 01/22/25 07:39 Alanine Aminotransferase (ALT) 54 U/L (7-40) H 54 U/L (7-40) H Alkaline Phosphatase 72 U/L (46-116) 70 U/L (46-116) Aspartate Amino Transferase (AST) 23 U/L (13-40) 23 U/L (13-40) Total Bilirubin 0.4 mg/dL (0.2-1.0) 0.4 mg/dL (0.2-1.0) Urinalysis Test 01/22/25 05:46 Urine Color Light-yellow (Yellow) Urine Clarity Clear (Clear) Urine pH 7.5 (5.0-9.0) Urine Specific Anthony 1.016 (1.001-1.035) Urine Protein Negative (Negative) Urine Ketones Negative (Negative) Urine Blood Negative /uL (Negative) Urine Nitrite Negative (Negative) Urine Bilirubin Negative (Negative) Urine Urobilinogen Normal mg/dL (Negative) Urine Leukocyte Esterase Negative /uL (Negative) Urine RBC 1 /hpf (0 - 3) Urine Microscopic WBC 1 /HPF (0-3) Urine Squamous Epithelial Cells Few /hpf (<5) Urine Bacteria None seen /hpf (None Seen) Urine Glucose Normal mg/dL (Normal) Labs and/or images reviewed: Labs reviewed by me, Image(s) reviewed by me Assessment/Plan Assessment/Plan Impression: -breakthrough seizures -history of seizure disorder -obesity -cannabinoid use Plan: -neurology consultation -continue Depakote and Vimpat -IV lorazepam p.r.n. seizure activity -reassess for discharge in a.m. if patient is seizure free Total time spent with patient discussing and formulating plan of care: 35 minutes. This medical document was created using an electronic medical record system with App[employer] dictation system. Although this document has been carefully reviewed, there may still be some phonetic and typographical errors. These areas are purely typographical due to imperfections of the software programs, and do not reflect any compromise in the patient's medical care. Plan discussed with: Patient, Other (Rn) My Orders Orders - PROSPER SOSA NP Procedure Category Date Status Time * Neurology Consult CONS 01/22/25 Transmitted 09:54 Date of Service: Jan 22, 2025 Billing Provider: PROSPER SOSA NP Common Visit Codes: [id number] INP/OBS CARE(HIGH) PROSPER SOSA NP Jan 22, 2025 10:14
[2025-01-22] MEDS: LACOSAMIDE 50 MG TAB PO SCH (10:30)
[2025-01-22 12:00] VITALS: BP 123/84; PULSE 88; RESP 22; TEMP 99; O2SAT 99
[2025-01-22 14:00] VITALS: BP 123/84; PULSE 97; RESP 12; TEMP 97.6; O2SAT 99
[2025-01-22] MEDS: MAALOX PLUS or MAALOX 30 ML PO PRN (14:15)
[2025-01-22 16:00] VITALS: BP 123/84; PULSE 97; RESP 12; TEMP 97.6; O2SAT 99
[2025-01-22] MEDS: LORazepam 2MG/ML-1ML VIAL IV PRN (22:06)
[2025-01-22 23:00] VITALS: BP 122/97; PULSE 95; RESP 18; TEMP 97.8; O2SAT 99
[2025-01-23] MEDS ORDERED: LACO200T3 PO (00:11)
[2025-01-23] MEDS ORDERED: LOSA50TA12 PO (00:11)
[2025-01-23] MEDS ORDERED: LORA-655 PO (00:11)
[2025-01-23 01:00] VITALS: BP 119/85; PULSE 85; RESP 19; TEMP 98; O2SAT 97
[2025-01-23 05:00] VITALS: BP 118/91; PULSE 96; RESP 18; TEMP 98.1; O2SAT 97
[2025-01-23 06:34] LABS: Alkaline Phosphatase 71 U/L (46-116); Anion Gap 9 (5-15); BUN/Creatinine Ratio 6.9 (10.0-20.0); Calcium 9.4 mg/dL (8.7-10.4); Carbon Dioxide 28 mmol/L (20-31); Chloride 102 mmol/L (98-107); Glucose 85 mg/dL (74-106); Potassium 3.7 mmol/L (3.5-5.1); Sodium 139 mmol/L (136-145); Total Protein 8.1 g/dL (5.7-8.2)
[2025-01-23 06:35] LABS: Albumin 4.7 g/dL (3.2-4.8); Bilirubin, Total 0.6 mg/dL (0.2-1.0)
[2025-01-23 06:41] LABS: Hematocrit 42.8 % (41.0-53.0); Hemoglobin 14.4 g/dL (13.5-17.5); Mean Corpuscular Hemoglobin 31.3 pg (28.0-32.0); Mean Corpuscular Volume 93.0 fL (80.0-100.0); Nucleated Red Blood Cells % 0.1 %
[2025-01-23] MEDS: PANTOPRAZOLE 40 MG TAB PO SCH (06:45)
[2025-01-23 06:48] LABS: Alanine Aminotransferase 44 U/L (7-40); Blood Urea Nitrogen 7 mg/dL (9-23)
[2025-01-23 08:00] VITALS: PULSE 92
[2025-01-23 09:00] VITALS: BP 134/77; PULSE 91; RESP 20; TEMP 98.2; O2SAT 96
[2025-01-23 13:00] VITALS: BP 147/104; PULSE 93; RESP 20; TEMP 98; O2SAT 98
--- NOTE | 2025-01-23 14:05 | DVHDS2 ---
Discharge Summary Date of Admission Jan 22, 2025 at 04:53 Date of Discharge: Jan 23, 2025 Admitting Diagnosis Breakthrough seizures Labs/Diagnostic Data: Laboratory Results Test 01/23/25 05:34 01/22/25 05:46 01/22/25 05:43 White Blood Count 7.5 10^3/uL (4.4-10.8) Red Blood Count 4.60 10^6/uL (4.5-5.90) Hemoglobin 14.4 g/dL (13.5-17.5) Hematocrit 42.8 % (41.0-53.0) Mean Corpuscular Volume 93.0 fL (80.0-100.0) Mean Corpuscular Hemoglobin 31.3 pg (28.0-32.0) Mean Corpuscular Hemoglobin Concent 33.7 g/dL (32.0-36.0) Red Cell Distribution Width 14.1 % (11.8-14.3) Platelet Count 237 10^3/uL (140-450) Mean Platelet Volume 8.3 fL (6.9-10.8) Neutrophils (%) (Auto) 56.1 % (37.0-80.0) Lymphocytes (%) (Auto) 29.5 % (10.0-50.0) Monocytes (%) (Auto) 12.0 % (0.0-12.0) Eosinophils (%) (Auto) 2.0 % (0.0-7.0) Basophils (%) (Auto) 0.4 % (0.0-2.0) Neutrophils # (Auto) 4.2 10 ^3/uL (1.6-8.6) Lymphocytes # (Auto) 2.2 10 ^3/uL (0.4-5.4) Monocytes # (Auto) 0.9 10 ^3/uL (0-1.3) Eosinophils # (Auto) 0.1 10 ^3/uL (0-0.8) Basophils # (Auto) 0 10 ^3/uL (0-0.2) Nucleated Red Blood Cells 0.1 % Sodium Level 139 mmol/L (136-145) Potassium Level 3.7 mmol/L (3.5-5.1) Chloride Level 102 mmol/L (98-107) Carbon Dioxide Level 28 mmol/L (20-31) Anion Gap 9 (5-15) Blood Urea Nitrogen 7 mg/dL (9-23) Creatinine 1.02 mg/dL (0.700-1.30) Glomerular Filtration Rate Calc 96 mL/min (>90) BUN/Creatinine Ratio 6.9 (10.0-20.0) Serum Glucose 85 mg/dL (74-106) Calcium Level 9.4 mg/dL (8.7-10.4) Total Bilirubin 0.6 mg/dL (0.2-1.0) Aspartate Amino Transferase (AST) 21 U/L (13-40) Alanine Aminotransferase (ALT) 44 U/L (7-40) Alkaline Phosphatase 71 U/L (46-116) Total Protein 8.1 g/dL (5.7-8.2) Albumin 4.7 g/dL (3.2-4.8) Urine Color Light-yellow (Yellow) Urine Clarity Clear (Clear) Urine pH 7.5 (5.0-9.0) Urine Specific [place] 1.016 (1.001-1.035) Urine Protein Negative (Negative) Urine Ketones Negative (Negative) Urine Blood Negative /uL (Negative) Urine Nitrite Negative (Negative) Urine Bilirubin Negative (Negative) Urine Urobilinogen Normal mg/dL (Negative) Urine Leukocyte Esterase Negative /uL (Negative) Urine RBC 1 /hpf (0 - 3) Urine Microscopic WBC 1 /HPF (0-3) Urine Squamous Epithelial Cells Few /hpf (<5) Urine Bacteria None seen /hpf (None Seen) Urine Glucose Normal mg/dL (Normal) Urine Opiates Screen Neg (NEGATIVE) Urine Fentanyl Screen Neg (NEGATIVE) Urine Barbiturates Screen Neg (NEGATIVE) Urine Phencyclidine Screen Neg (NEGATIVE) Urine Amphetamines Screen Neg (NEGATIVE) Urine Benzodiazepines Screen Neg (NEGATIVE) Urine Cocaine Screen Neg (NEGATIVE) Urine Cannabinoids Screen Pos (NEGATIVE) Valproic Acid Level 78.0 ug/mL (50-100) Other Laboratory Tests 01/23/25 05:34 Brief Hx & Hospital Course: History of Present Illness The patient is a 31-year-old male with past medical history of seizures who presented to [facility] ED for evaluation of seizures activity. As reported by , patient had a witnessed seizures, associated with generalized weakness, headache, and body pains. Patient's last seizure episode was 3 weeks ago. Patient was seen and evaluated in the ED, laboratory data shows WBC 6.9, platelets 239, sodium 140, potassium 4.2, BUN 6, creatinine 1.05, glucose 94, calcium 10.1, protein 8.5, albumin 4.9, AST 23, ALT 54, blood pressure 131/93, heart rate 96, temperature 97.9 F, O2 saturation 97% on room air. Patient was started on Depakote and Vimpat, please see medication orders section in the computer. On my assessment, at bedside, patient denied chest pain, no dizziness, headache, shortness of breaths, diaphoresis, no abdominal pain, diarrhea, nausea, vomiting, fever, no chills. Patient was admitted for further evaluation and medical management. Course of hospitalization: Patient was restarted on his home antiepileptic regimen, as well as being placed on IV lorazepam for any breakthrough seizure activity. Patient has been seizure-free for the past 24 hours. Further discussion with the patient reveals that between his psychiatrist and his neurologist his medications has been somewhat altered with respect to his Ativan for anxiety. At this time patient will be discharged home as instructed not to taper his home Ativan as this is possibly the culprit for why he had a breakthrough seizure activity. Patient is also currently on Zepbound with recently his dose to be in increase, which may alter his efficacy of his antiepileptics. Given the patient is not morbidly obese it was recommended that he take up other means of weight loss. Both him and his are agreeable with discharge plan. All questions answered. Physical examination General: Alert and Oriented x3. No acute distress. Well-nourished. Eyes: EOMI. Anicteric. HENT: Moist mucous membranes. Lungs: Clear to auscultation bilaterally. No accessory muscle use. Cardiovascular: Regular rate and rhythm. No murmur. No JVD. Abdomen: Soft, non-tender and non-distended. No palpable masses. Extremities: No edema. Non-tender. Skin: No rashes or lesions. Warm. Neurologic: No focal neurological deficits. CN II-XII grossly intact, but not individually tested. Psychiatric: Cooperative. Appropriate mood and affect. Total time spent with patient discussing and formulating plan of care: 35 minutes. This medical document was created using an electronic medical record system with [employer] dictation system. Although this document has been carefully reviewed, there may still be some phonetic and typographical errors. These areas are purely typographical due to imperfections of the software programs, and do not reflect any compromise in the patient's medical care. Condition at Discharge: Fair Final Diagnosis/Problems List Breakthrough seizures -history of seizure disorder -obesity -cannabinoid use -anxiety disorder Discharge Disposition: Home Discharge Instruct/Medications Diet: Regular Activity: No Restrictions, As Tolerated Follow Up/Referral: Follow up with PCP, psychiatrist, and neurologist at next available appointment Medications: Continue all home medications Discussed with the patient to not taper Ativan for anxiety given recent seizure activity Scheduled Divalproex Sodium (Divalproex Sodium), 250 MG PO TID, (Reported) Lacosamide (Lacosamide), 300 MG PO BID, (Reported) Lorazepam (Ativan), 0.5 MG PO BID, (Reported) Losartan Potassium (Cozaar), 50 MG PO DAILY, (Reported) 36 Discharge Statement: "Patient was advised to return to the ER or call 911 if any headaches, dizziness, shortness of breath, chest pain, abdominal pain, bleeding, fevers, or worsening of medical condition. Patient was counseled about treatment plan, medications, possible side effects, patientverbalized understanding. All questions were answered to the best of my ability. This discharge took greater then 30 minutes in planning, reviewing documentation, counseling the patient, and discussing with other team members." ASSESSMENT ASSESSMENT Assessment Breakthrough seizures Date of Service: Jan 23, 2025 Billing Provider: PROSPER SOSA NP Common Visit Codes: 79627-VXX/OBS DISCH DAY >30min PROSPER SOSA NP Jan 23, 2025 14:05
[2025-01-23 14:33] VITALS: BP 151/97; PULSE 93; RESP 18; TEMP 97.5; O2SAT 94
[2025-01-23] MEDS: LORazepam 0.5 MG TAB PO PRN (16:06)
== END 2025-01-23 17:09 | disposition home or self-care (01) | DRG 53 ==
LOC: ER 02:06 → EDBD 02:06 → OVERFLOW 04:53 → TELE-WESTW 22:51
PROVIDERS: ADMIT Nurse Practitioner Family; ATTEND Nurse Practitioner Family
DX: G40.909 Epilepsy, unspecified, not intractable, without status epilepticus (principal); E66.9 Obesity, unspecified; F12.90 Cannabis use, unspecified, uncomplicated; F41.9 Anxiety disorder, unspecified; Z68.31 Body mass index [BMI] 31.0-31.9, adult; Z88.0 Allergy status to penicillin; Z88.1 Allergy status to other antibiotic agents
CPT/HCPCS: 36415; 70450; 80053; 80164; 80307; 81001; 85025; 96361; 96374; 96375; G0378; J2405